=== PATIENT | female | born 1990 | race African-American/Black ===

== ENCOUNTER 2016-12-03 14:28 | Emergency (ER) | payer SELFPAY ==
[~2016-12-03] VITALS: Ht 170.2 cm; Wt 50.0 kg
[2016-12-03] MEDS ORDERED: LIDOCAINE HCL/EPINEPHRINE 1%-EPI 1:100,000 20 ML VIAL INFIL ONE (18:30)
[2016-12-03] MEDS ORDERED: TETANUS, DIPHTHERIA, PERTUSSIS VAC/PF 0.5ML (>7YR OLD) IM ONE (18:30)
[2016-12-03] MEDS ORDERED: ACETAMINOPHEN 325MG TABLET PO ONE (18:30)
[2016-12-03] MEDS ORDERED: BACITRACIN ZINC OINT UDPKT TOP ONE (18:30)
[2016-12-03] MEDS ORDERED: LIDOCAINE HCL 1% 20ML VIAL (Pyxis) INJ INFIL ONE (19:15)
[2016-12-03 20:04] VITALS: BP 118/76
== END 2016-12-03 20:09 | disposition home or self-care (01) ==
LOC: ER 15:15
DX: S61.411A Laceration without foreign body of right hand, initial encounter (principal); S10.81XA Abrasion of other specified part of neck, initial encounter; S20.319A Abrasion of unspecified front wall of thorax, initial encounter; Y07.03 Male partner, perpetrator of maltreatment and neglect; Y04.8XXA Assault by other bodily force, initial encounter; W25.XXXA Contact with sharp glass, initial encounter; Y93.89 Activity, other specified; Y92.098 Other place in other non-institutional residence as the place of occurrence of the external cause; I10 Essential (primary) hypertension; Z23 Encounter for immunization; Z87.19 Personal history of other diseases of the digestive system
CPT/HCPCS: 12001; 73120; 90471; 90715; 99284; J3490; X7700; Z7610

== ENCOUNTER 2017-12-10 16:31 | Emergency (ER) | payer SELFPAY ==
[~2017-12-10] VITALS: Ht 167.6 cm; Wt 59.0 kg
[2017-12-10 16:55] VITALS: BP 122/77
== END 2017-12-10 19:45 | disposition left against medical advice (07) ==
LOC: ER 16:31
DX: R06.02 Shortness of breath (principal); M25.562 Pain in left knee; M25.561 Pain in right knee; I10 Essential (primary) hypertension; D64.9 Anemia, unspecified; Z98.890 Other specified postprocedural states; Z53.21 Procedure and treatment not carried out due to patient leaving prior to being seen by health care provider

== ENCOUNTER 2018-03-29 00:56 | Emergency (ER) | payer OTHER ==
[~2018-03-29] VITALS: Ht 165.1 cm; Wt 63.0 kg
[2018-03-29 01:11] VITALS: BP 135/89
== END 2018-03-29 04:12 | disposition left against medical advice (07) ==
LOC: ER 02:00
DX: Z53.21 Procedure and treatment not carried out due to patient leaving prior to being seen by health care provider (principal)